=== PATIENT | male | born 1950 | race Caucasian/White ===

== ENCOUNTER 2020-09-15 11:25 | Outpatient (CLI) | payer MEDICARE, BC, OTHER, SELFPAY ==
--- NOTE | 2020-09-15 11:30 | ECG_ITS ---
Measurements Intervals [place] Rate: 69 P: 26 NH: 179 QRS: 21 QRSD: 140 T: 31 QT: 385 QTc: 415 Interpretive Statements SINUS RHYTHM LEFT BUNDLE BRANCH BLOCK BASELINE ARTIFACT- I, II, III, AVR, AVL, AVF, V1-V6 ABNORMAL ECG Electronically Signed On 09-15-2020 11:53:20 CDT by Oliverio Goetz D.O.
[2020-09-15 12:11] LABS: Anion Gap 5 mmol/L (8-16); Blood Urea Nitrogen 16 mg/dL (9-20); Calcium 10.8 mg/dL (8.4-10.2); Carbon Dioxide 33 mmol/L (22-30); Chloride 102 mmol/L (98-107); Estimated Glomerular Filt Rate > 60; Glucose 136 mg/dL (75-110); Potassium 5.1 mmol/L (3.4-5.0); Sodium 140 mmol/L (137-145)
== END 2020-09-15 11:26 | disposition home or self-care (01) ==
LOC: ANHSURGERY 11:33
PROVIDERS: Anesthesiology; PCP Family Medicine; Visit Provider Orthopaedic Surgery
DX: E11.9 Type 2 diabetes mellitus without complications (principal); Z79.899 Other long term (current) drug therapy; E78.5 Hyperlipidemia, unspecified; I10 Essential (primary) hypertension; R94.31 Abnormal electrocardiogram [ECG] [EKG]
CPT/HCPCS: 36415; 80048; 93005

== ENCOUNTER → 2020-09-18 00:17 | Outpatient (CLI) | payer MEDICARE, BC, OTHER, SELFPAY ==
[2020-09-19 14:53] LABS: SARS-CoV-2 RNA PCR Negative
== END ==
PROVIDERS: PCP Family Medicine; Visit Provider Orthopaedic Surgery
DX: Z01.812 Encounter for preprocedural laboratory examination (principal); Z20.822 Contact with and (suspected) exposure to COVID-19
CPT/HCPCS: C9803; U0003; U0005

== ENCOUNTER 2020-09-21 02:06 | Day surgery (SDC) | payer MEDICARE, BC, OTHER, SELFPAY ==
[2020-09-14 11:31] VITALS: BMI 25.7
--- NOTE | 2020-09-20 13:52 | WPDANESEPPF ---
Anes - Initial Pre Proc Eval Procedure: Operation Date: 09/21/20 08:30 Proposed Procedures p Arthroscopic Right Knee Partial Medial and Lateral Meniscectomy - Ian Sheikh MD Date/Time: 09/20/20 13:52 Surgeon: Ian Sheikh MD Pre Op Diagnosis: tear of right medial and lateral meniscus Patient Data Age: 70 Gender: M Height: 6 ft Weight: 86 kg Allergies Allergy/AdvReac Type Severity Reaction Status Date / Time tramadol AdvReac Mild Other Verified 09/21/20 06:51 Home Medications Medication Instructions Recorded Confirmed Type amlodipine 10 mg tablet 10 mg PO DAILY 08/17/20 09/21/20 History atorvastatin 40 mg tablet 40 mg PO HS 08/17/20 09/21/20 History diclofenac sodium 3 % topical gel 1 applic TOPICAL BID 08/17/20 09/21/20 History enalapril maleate 20 mg tablet 20 mg PO BID 08/17/20 09/21/20 History metformin 500 mg tablet 500 mg PO DAILY 08/17/20 09/21/20 History omeprazole 40 mg capsule,delayed 40 mg PO DAILY 08/17/20 09/21/20 History release triamterene 75 1 tablet PO DAILY 08/17/20 09/21/20 History mg-hydrochlorothiazide 50 mg tablet aspirin 81 mg PO DAILY 09/14/20 09/21/20 History omega 4-zha-dnz-fish oil [Fish Oil] 1 cap PO DAILY 09/14/20 09/21/20 History turmeric 400 mg PO DAILY 09/14/20 09/21/20 History vitamin B complex 1 tablet PO DAILY 09/14/20 09/21/20 History hydrocodone-acetaminophen 1 - 2 tablet PO Q4H PRN #14 tablet 09/21/20 Rx MDD 8 tablets Patient hx anesthesia problems: none Family hx anesthesia problems: none PMFSH Past Medical History Medical History (Updated 09/20/20 @ 13:51 by Emmanuel Leonard MD) Diabetes 1.5, managed as type 2 GERD (gastroesophageal reflux disease) Hypertension Surgical History Surgical History (Updated 09/02/20 @ 14:56 by Ni Carrington MA) History of right knee surgery History of shoulder surgery Social History Social History (Updated 08/17/20 @ 15:24 by Ludmila J. Becherer, RT(R)) Smoking status: Never smoker Alcohol intake: current Drinks per week: 5 Substance use: never Substance use type: does not use Living arrangements: with family Spiritual care concerns: No Anes - Eval Final PreProcedure Day of Procedure 09/20/20 13:52 Patient weight: overweight Heart: regular rate and rhythm Lungs: clear to auscultation Airway: Mallampati scale class II Neurological: alert and oriented Last oral intake: >/= 8 hours ASA classification: III Emergent: no Anesthetic plan: proceed Anesthesia type and monitoring: general LMA and standard monitoring Informed Consent: The patient's anesthetic plan and its attendant risks and benefits were discussed with the patient/family/POA. Questions were solicited and answers provided to the satisfaction of the patient/family/POA.
[2020-09-21 06:45] VITALS: BP 139/72; PULSE 68; RESP 18; TEMP 36.2; O2SAT 100
--- NOTE | 2020-09-21 06:52 | SUR.PREOP ---
PT STATES HE HAS CRUTCHES AT HOME AND KNOWS HOW TO USE THEM.
[2020-09-21] MEDS: LACTATED RINGERS 1,000 ML 30 ML IV CONT (07:10)
[2020-09-21] MEDS: KETOROLAC 15 MG/ML VIAL (*BKC) IV PUSH (07:14)
[2020-09-21] MEDS: ACETAMINOPHEN 500 MG TABLET 1000 MG PO (07:14)
[2020-09-21 07:19] LABS: Glucose Point of Care 122 (65-105)
--- NOTE | 2020-09-21 07:58 | WPDHPUPDATE1 ---
History and Physical Update Update Date/Time: 09/21/20 07:58 History and Physical has been reviewed, including an updated exam of the patient. There are NO changes in the patient's condition. Risks, benefits, and alternatives have been discussed and questions answered. Patient agrees to proceed with procedure.
[2020-09-21] MEDS: ceFAZolin 2 GM/D5W 50 ML 2 GM/50 ML BAG IVPB (08:33)
[2020-09-21] MEDS: BUPIVACAINE/EPINEPHRINE 0.5% 30 ML VIAL INFILTRATE (08:59)
--- NOTE | 2020-09-21 09:23 | PM.PROC ---
Procedure Note - Detailed Date of procedure: 09/21/20 Pre-op diagnosis: tear of right medial and lateral meniscus Medial and lateral meniscus tear, right knee. Post-op diagnosis: same Procedure performed: Arthroscopic partial medial and lateral meniscectomy, right knee. Description of procedure: Extensive tear posterior horn medial, and lateral horn horizontal cleavage tear. Mild femoral chondromalacia medial femur. Lateral minimal softening of the tibia weight bearing surface. Patellofemoral grade I chondromalacia. Anesthesia: GETA Surgeon: Ian Sheikh MD [employer] Director: Maryann Coleman PA-C Estimated blood loss (mL): 5 Tourniquet time (min): 23 Complications: None Condition: stable Disposition: PACU Findings: Procedure Details: The patient was identified and the surgical site confirmed and signed in the preoperative holding area. Antibiotics were started per protocol. She was brought to the operative room and transferred to the OR table. A general anesthetic was administered. Supine position with the operative lower extremity position in the leg rubio after placement of a well padded tourniquet. The leg support was lowered and the contralateral limb was supported with a soft bolster. The knee was prepped and draped in the usual sterile fashion. A time-out was performed. The portal sites were marked and infiltrated with 0.5% Marcaine 20 mL. The limb was exsanguinated and the tourniquet inflated to 300 mL Hg. Standard inferolateral and inferomedial portals were established. Inflow was obtained with the saline pump. The camera was introduced. Diagnostic inspection of the joint was accomplished. The menisci were debrided with the arthroscopic shaver and punches until stable. The radiofrequency ablation tool was used with good result to further d?bride and stabilize the remaining meniscus. The arthroscopic instruments were removed. The tourniquet released and wounds closed with subcutaneous 3-0 Monocryl absorbable suture. Steri strips and a sterile dressing were applied. A light elastic wrap was placed. The patient was extubated and brought to the recovery room in stable condition.
[2020-09-21 09:32] VITALS: BP 95/54; PULSE 70; RESP 14; TEMP 36.6; O2SAT 97
[2020-09-21 09:41] LABS: Glucose Point of Care 116 (65-105)
[2020-09-21 09:45] VITALS: BP 88/60; PULSE 64; RESP 12; O2SAT 100
[2020-09-21 10:00] VITALS: BP 110/65; PULSE 66; RESP 20; O2SAT 99
--- NOTE | 2020-09-21 10:03 | SUR.PHASEI ---
1000 - dr. hunt at bedside
[2020-09-21 10:07] VITALS: BP 125/74; PULSE 63; RESP 18
[2020-09-21 10:37] VITALS: BP 125/71; PULSE 60; RESP 20
== END 2020-09-21 10:47 | disposition home or self-care (01) ==
PROVIDERS: PCP Family Medicine; Visit Provider Orthopaedic Surgery
PROC: (CPT 29870; principal; 2020-09-21 08:30)
DX: M23.321 Other meniscus derangements, posterior horn of medial meniscus, right knee (principal); M23.351 Other meniscus derangements, posterior horn of lateral meniscus, right knee; M94.261 Chondromalacia, right knee; E13.9 Other specified diabetes mellitus without complications; I10 Essential (primary) hypertension; K21.9 Gastro-esophageal reflux disease without esophagitis; Z79.84 Long term (current) use of oral hypoglycemic drugs
CPT/HCPCS: 29880; 82948; A9270; J0690; J1170; J1885; J2250; J2405; J2704; J3010; J7120

== ENCOUNTER 2021-10-13 14:50 | Outpatient (CLI) | payer MEDICARE, BC, OTHER, SELFPAY ==
--- NOTE | ~2021-10-13 | XR_ITS ---
EXAMINATION: XR lumbar spine 2-3V DATE: 10/13/2021 15:20 INDICATION: Low back pain TECHNIQUE: Anteroposterior and lateral views of the lumbar spine, and cone-down lateral view of the l umbosacral junction were obtained. COMPARISON: None. FINDINGS: The lumbar vertebral body heights are normal. Bone alignment is normal. There is mild loss of intervertebral disc space height at L4-5 and L5-S1. Small degenerative osteophytes project from th e anterior endplates of multiple vertebral bodies. There is no fracture. There is mild facet osteoart hritis of the lower lumbar spine. IMPRESSION: 1. Mild lumbar spondylosis without acute findings. Reviewed, dictated and finalized at location F.
== END 2021-10-13 14:51 | disposition home or self-care (01) ==
PROVIDERS: PCP Family Medicine; Visit Provider Family Medicine
DX: M47.816 Spondylosis without myelopathy or radiculopathy, lumbar region (principal); G89.29 Other chronic pain
CPT/HCPCS: 72100

== ENCOUNTER 2021-12-28 00:38 | Day surgery (SDC) | payer MEDICARE, BC, OTHER, SELFPAY ==
[2021-12-20 09:43] VITALS: BMI 26.7
[2021-12-28 09:33] VITALS: BP 133/64; PULSE 66; RESP 17; TEMP 36.1; O2SAT 97; BMI 26.4
[2021-12-28] MEDS: LACTATED RINGERS 1,000 ML 150 ML IV CONT (09:48)
[2021-12-28 09:51] LABS: Glucose Point of Care 136 mg/dl (65-105)
--- NOTE | 2021-12-28 10:16 | WPDANESEPPF ---
Anes - Initial Pre Proc Eval Procedure: Operation Date: 12/28/21 10:45 Proposed Procedures p Esophagogastroduodenoscopy & Screening Colonoscopy - Heath De Oliveira MD Date/Time: 12/28/21 10:16 Surgeon: Heath De Oliveira MD Pre Op Diagnosis: hx of colon polyps, GERD Patient Data Age: 71 Gender: M Height: 1.83 m Weight: 88.6 kg Last Vital Signs Temp 97 F L 12/28/21 09:33 Pulse 66 12/28/21 09:33 Resp 17 12/28/21 09:33 BP 133/64 12/28/21 09:33 Pulse Ox 97 12/28/21 09:33 O2 Del Method Room Air 12/28/21 09:33 Allergies Allergy/AdvReac Type Severity Reaction Status Date / Time tramadol AdvReac Mild Other Verified 12/28/21 09:32 Home Medications Medication Instructions Recorded Confirmed Type amlodipine 10 mg tablet 10 mg PO DAILY 08/17/20 12/28/21 History diclofenac sodium 3 % topical gel 1 applic topical BID 08/17/20 12/28/21 History metformin 500 mg tablet 500 mg PO DAILY 08/17/20 12/28/21 History omeprazole 40 mg capsule,delayed 40 mg PO DAILY 08/17/20 12/28/21 History release triamterene 75 1 tablet PO DAILY 08/17/20 12/28/21 History mg-hydrochlorothiazide 50 mg tablet aspirin 81 mg tablet 81 mg PO DAILY 09/14/20 12/28/21 History omega 4-hqf-vip-fish oil 60 mg-90 1 cap PO DAILY 09/14/20 12/28/21 History mg-500 mg capsule (Fish Oil) turmeric 400 mg capsule 400 mg PO DAILY 09/14/20 12/28/21 History vitamin B complex 1 tablet PO DAILY 09/14/20 12/28/21 History atorvastatin 40 mg tablet 40 mg PO QHS 02/15/21 12/28/21 History magnesium 250 mg tablet 250 mg PO DAILY 02/15/21 12/28/21 History coenzyme Q10 30 mg capsule (CoQ-10) 30 mg PO DAILY 11/10/21 12/28/21 History Laboratory Tests 12/28/21 09:46 POC Capillary Glucose 136 mg/dl H mg/dl (65-105) Patient hx anesthesia problems: none Family hx anesthesia problems: none Results Review: All pre-operative results and documents have been reviewed as part of the pre-operative evaluation. [facility] Past Medical History Medical History (Updated 11/10/21 @ 15:45 by Heath De Oliveira MD) Chronic low back pain Dyslipidemia Essential (primary) hypertension GERD (gastroesophageal reflux disease) History of colon polyps Type 2 diabetes mellitus without complications Surgical History Surgical History History of right knee surgery (~09/2020) meniscus repair History of shoulder surgery (~2016) L: 2016, L:2017, R: 2014 repair of torn labrum History of thumb surgery 2009 - Right thumb trigger finger release Social History Social History Smoking status: Never smoker Alcohol intake: current Drinks per week: 5 Alcohol use details: few Substance use: never Substance use type: does not use Living arrangements: with family Spiritual care concerns: No Anes - Eval Final PreProcedure Day of Procedure 12/28/21 10:16 Patient weight: normal Heart: regular rate and rhythm Lungs: clear to auscultation Airway: Mallampati scale class II Neurological: alert and oriented Last oral intake: >/= 8 hours ASA classification: III Emergent: no Anesthetic plan: proceed Anesthesia type and monitoring: general GIVS and standard monitoring Results Review: All pre-operative results and documents have been reviewed as part of the pre-operative evaluation. Informed Consent: The patient's anesthetic plan and its attendant risks and benefits were discussed with the patient/family/POA. Questions were solicited and answers provided to the satisfaction of the patient/family/POA.
--- NOTE | 2021-12-28 10:21 | PM.HPGS ---
History of Present Illness History of Present Illness Consent: Risks, benefits, and alternatives have been discussed and questions answered. Patient agrees to proceed with procedure. Chief complaint: hx of colon polyps, GERD Narrative: Alberto Smith is a 71 year old male here for egd and colonoscopy, had?screening colonoscopy 2013 with polyp removed, recommendation to repeat another one in 7 years (he is due) and also more than 15 years on omeprazole because of gerd Review of Systems Constitutional: Constitutional: Denies headache(s) and Denies weakness Eyes: Eyes: Denies blurry vision ENT: Reports Normal hearing present, Denies headache(s) and Denies neck pain Cardiovascular: Cardiovascular: Denies chest pain and Denies dyspnea Respiratory: Respiratory: Denies dyspnea Gastrointestinal: Gastrointestinal: Reports no additional gastrointestinal complaints Genitourinary: Genitourinary: Denies dysuria Musculoskeletal: Musculoskeletal: Denies neck pain Integumentary/Breasts: Skin/Breast: Denies dry skin Neurologic: Reports Normal hearing present, Denies headache(s) and Denies weakness Psychiatric: Psychiatric: Denies anxiety Endocrine: Endocrine: Denies change in body appearance Hematologic/Lymphatic: Hematologic/Lymphatic: Denies easy bleeding Allergic/Immunologic: Allergic/Immunologic: Denies urticaria PMFSH Past Medical History Medical History (Updated 11/10/21 @ 15:45 by Heath De Oliveira MD) Chronic low back pain Dyslipidemia Essential (primary) hypertension GERD (gastroesophageal reflux disease) History of colon polyps Type 2 diabetes mellitus without complications Surgical History Surgical History History of right knee surgery (~09/2020) meniscus repair History of shoulder surgery (~2016) L: 2016, L:2017, R: 2014 repair of torn labrum History of thumb surgery 2009 - Right thumb trigger finger release Social History Social History Smoking status: Never smoker Alcohol intake: current Drinks per week: 5 Alcohol use details: few Substance use: never Substance use type: does not use Living arrangements: with family Spiritual care concerns: No Meds Home Medications and Allergies Home Medications Medication Instructions Recorded Confirmed Type amlodipine 10 mg tablet 10 mg PO DAILY 08/17/20 12/28/21 History diclofenac sodium 3 % topical gel 1 applic topical BID 08/17/20 12/28/21 History metformin 500 mg tablet 500 mg PO DAILY 08/17/20 12/28/21 History omeprazole 40 mg capsule,delayed 40 mg PO DAILY 08/17/20 12/28/21 History release triamterene 75 1 tablet PO DAILY 08/17/20 12/28/21 History mg-hydrochlorothiazide 50 mg tablet aspirin 81 mg tablet 81 mg PO DAILY 09/14/20 12/28/21 History omega 1-qkj-cet-fish oil 60 mg-90 1 cap PO DAILY 09/14/20 12/28/21 History mg-500 mg capsule (Fish Oil) turmeric 400 mg capsule 400 mg PO DAILY 09/14/20 12/28/21 History vitamin B complex 1 tablet PO DAILY 09/14/20 12/28/21 History atorvastatin 40 mg tablet 40 mg PO QHS 02/15/21 12/28/21 History magnesium 250 mg tablet 250 mg PO DAILY 02/15/21 12/28/21 History coenzyme Q10 30 mg capsule (CoQ-10) 30 mg PO DAILY 11/10/21 12/28/21 History Allergies Allergy/AdvReac Type Severity Reaction Status Date / Time tramadol AdvReac Mild Other Verified 12/28/21 09:32 Vital Signs Vital Signs - 24 hr 12/28/21 09:33 Temperature 97 F L Pulse Rate 66 Respiratory Rate 17 Blood Pressure 133/64 Pulse Oximetry 97 Oxygen Delivery Room Air Exam Const: General: comfortable and no acute distress HENMT: General nose exam: Normal nares present Eyes: General: appearance normal, both eyes and all related structures Neck: Neck: no JVD Resp: Auscultation: clear to auscultation bilaterally Cardio: Rate: regular rate Rhythm: regular rhythm GI:
--- NOTE | 2021-12-28 10:39 | SUR.OPER ---
EGD FINISHED AT 1033, COLONOSCOPY BEGAN AT 1037.
[2021-12-28 10:52] VITALS: BP 95/52; PULSE 58; RESP 30; O2SAT 95
[2021-12-28 11:02] VITALS: BP 97/56; PULSE 56; RESP 15; O2SAT 97
[2021-12-28 11:12] VITALS: BP 107/70; PULSE 59; RESP 19; O2SAT 100
== END 2021-12-28 11:17 | disposition home or self-care (01) ==
PROVIDERS: PCP Family Medicine; Visit Provider Internal Medicine Gastroenterology
PROC: 0DJ08ZZ Inspection of Upper Intestinal Tract, Via Natural or Artificial Opening Endoscopic (ICD-10-PCS; CPT 43235; principal; 2021-12-28 10:45)
DX: Z12.11 Encounter for screening for malignant neoplasm of colon (principal); K64.8 Other hemorrhoids; Z86.010 Personal history of colon polyps; K44.9 Diaphragmatic hernia without obstruction or gangrene; K21.9 Gastro-esophageal reflux disease without esophagitis; I10 Essential (primary) hypertension; E11.9 Type 2 diabetes mellitus without complications; E78.5 Hyperlipidemia, unspecified; M54.9 Dorsalgia, unspecified; G89.29 Other chronic pain; Z79.84 Long term (current) use of oral hypoglycemic drugs; Z79.82 Long term (current) use of aspirin
CPT/HCPCS: 43239; G0105; 82948; 88305; J2001; J2704; J7120

== ENCOUNTER 2022-03-18 11:51 | Emergency (ER) | payer MEDICARE, BC, OTHER, SELFPAY ==
[2022-03-18 12:05] VITALS: BP 137/68; PULSE 68; RESP 16; TEMP 36.3; O2SAT 98
--- NOTE | 2022-03-18 12:41 | ED.MALEGU ---
HPI - Male Genitourinary General Chief complaint: Urogenital-Male Stated complaint: Possible UTI Time Seen by Provider: 03/18/22 12:32 Source: patient Mode of arrival: ambulatory Limitations: no limitations History of Present Illness HPI Narrative: Patient presents today complaining of dysuria, urgency, frequency since yesterday. Denies fever, nausea, vomiting, diarrhea, URI symptoms. He has tried no medication for symptoms prior to arrival. Reports last UTI was 5 years ago and states he let the symptoms go for so long he needed 21 days of antibiotics. Related Data Home Medications Medication Instructions Recorded Confirmed amlodipine 10 mg tablet 10 mg PO DAILY 08/17/20 12/28/21 diclofenac sodium 3 % topical gel 1 applic topical BID 08/17/20 12/28/21 metformin 500 mg tablet 500 mg PO DAILY 08/17/20 12/28/21 omeprazole 40 mg capsule,delayed 40 mg PO DAILY 08/17/20 12/28/21 release triamterene 75 1 tablet PO DAILY 08/17/20 12/28/21 mg-hydrochlorothiazide 50 mg tablet aspirin 81 mg tablet 81 mg PO DAILY 09/14/20 12/28/21 omega 2-xqe-cyq-fish oil 60 mg-90 1 cap PO DAILY 09/14/20 12/28/21 mg-500 mg capsule (Fish Oil) turmeric 400 mg capsule 400 mg PO DAILY 09/14/20 12/28/21 vitamin B complex 1 tablet PO DAILY 09/14/20 12/28/21 atorvastatin 40 mg tablet 40 mg PO QHS 02/15/21 12/28/21 magnesium 250 mg tablet 250 mg PO DAILY 02/15/21 12/28/21 coenzyme Q10 30 mg capsule (CoQ-10) 30 mg PO DAILY 11/10/21 12/28/21 Allergies Allergy/AdvReac Type Severity Reaction Status Date / Time tramadol AdvReac Mild Other Verified 12/28/21 09:32 Review of Systems Review of Systems: CONSTITUTIONAL: Denies body aches, fever, chills, or sweats. EYES: Denies visual changes, redness, or discharge. ENT: Denies rhinorrhea, congestion, sore throat, or otalgia. CARDIOVASCULAR: Denies chest pain, palpitations, or edema. RESPIRATORY: Denies cough or dyspnea. GASTROINTESTINAL: Denies abdominal pain, nausea, vomiting, or diarrhea. GENITOURINARY: + dysuria, frequency, urgency SKIN: Denies rash, itching, or wounds. MUSCULOSKELETAL: Denies back pain, joint pain, or myalgia. NEUROLOGIC: Denies headache, numbness, tingling, or weakness. PSYCH: Denies depression or anxiety. [facility] Past Medical History Medical History Chronic low back pain Dyslipidemia Essential (primary) hypertension GERD (gastroesophageal reflux disease) History of colon polyps Type 2 diabetes mellitus without complications Surgical History Surgical History History of right knee surgery (~09/2020) meniscus repair History of shoulder surgery (~2016) L: 2016, L:2017, R: 2014 repair of torn labrum History of thumb surgery 2009 - Right thumb trigger finger release Social History Social History Smoking status: Never smoker Alcohol intake: current Drinks per week: 5 Alcohol use details: few Substance use: never Substance use type: does not use Spiritual care concerns: No Comments At time of signature, I have reviewed and agree with nursing past medical, surgical, social and family history unless otherwise noted. Please see nursing chart for further information. There is no relevant family history pertinent to the presenting complaint Exam Narrative: GENERAL: Well-appearing, well-nourished, and in no acute distress. HEAD: Normocephalic, atraumatic. EYES: EOMI. No redness or drainage. Conjunctivae normal. ENT: Mucous membranes pink and moist. NECK: Normal AROM. CHEST: No respiratory distress. Clear to auscultation. HEART: Regular rate and rhythm. No murmur appreciated. Normal peripheral pulses. ABDOMEN: Soft, nontender, nondistended, normal active bowel sounds.-CVAT EXTREMITIES: Normal range of motion. No edema. SKIN: Warm, dry, no rash. Capillary refill normal. No
== END 2022-03-18 12:50 | disposition home or self-care (01) ==
PROVIDERS: Emergency Provider Nurse Practitioner; PCP Family Medicine
DX: N30.01 Acute cystitis with hematuria (principal); E78.5 Hyperlipidemia, unspecified; I10 Essential (primary) hypertension; K21.9 Gastro-esophageal reflux disease without esophagitis; E11.9 Type 2 diabetes mellitus without complications; Z79.82 Long term (current) use of aspirin
CPT/HCPCS: 81003; 87086; 87147; 87181; 87186; 99213; G0463

== ENCOUNTER 2022-04-27 08:30 | Outpatient (CLI) | payer MEDICARE, BC, OTHER, SELFPAY ==
--- NOTE | 2022-04-27 08:45 | ECHO_ITS ---
Patient Info Name: Alberto Smith Age: 72 years : 1950 Gender: Male Ht: 72 in Wt: 195 lbs BSA: 2.13 m2 HR: 70 bpm BP: 153 / 78 mmHg Technical Quality: Good Exam Date: 04/27/2022 8:46 AM Exam Location: [facility] Patient Status: Outpatient Admit Date: 04/27/2022 Staff Ordering Physician: Geoffrey Owens MD [employer]ender Job Retention Specialist: Yana Bull RDCS Attending Provider: Geoffrey Owens MD Exam Type: CA echo doppler color flow Study Info Indications R01.1 - Cardiac murmur, unspecified Complete two-dimensional, color flow and Doppler transthoracic echocardiogram is performed. Summary 1. Complete two-dimensional, color flow and Doppler transthoracic echocardiogram is performed. 2. Left ventricular chamber dimension is moderately enlarged. 3. Left ventricular systolic function is moderately reduced, estimated at 35-40%. 4. Left ventricular septal wall motion is abnormal with septal motion related to bundle branch block. 5. The left ventricular diastolic function is grade I diastolic dysfunction. 6. E/e' 12 is mildly elevated. 7. Global longitudinal strain is abnormal at -14.8%. 8. Left atrial chamber dimension is mildly enlarged. 9. There is mild aortic valve sclerosis. 10. There is mild mitral valve regurgitation. 11. Mild pulmonary hypertension, estimated pulmonary arterial systolic pressure is 48 mmHg. Left Ventricle E/e' 12 is mildly elevated. Global longitudinal strain is abnormal at -14.8%. Left ventricular chamber dimension is moderately enlarged. Left ventricular systolic function is moderately reduced, estimated at 35-40%. Left ventricular septal wall motion is abnormal with septal motion related to bundle branch block. The left ventricular diastolic function is grade I diastolic dysfunction. Right Ventricle Right ventricular systolic function is normal and with normal TAPSE 2.7 cm. Right ventricular chamber dimension is normal. Left Atria Left atrial chamber dimension is mildly enlarged. Right Atria Right atrial chamber dimension is normal. Aortic Valve The aortic valve is trileaflet. There is mild aortic valve sclerosis. There is no aortic valve stenosis. There is no aortic valve regurgitation. Pulmonic Valve There is no pulmonic regurgitation. Mitral Valve There is no mitral valve stenosis. There is mild mitral valve regurgitation. Tricuspid Valve There is no tricuspid valve regurgitation. Mild pulmonary hypertension, estimated pulmonary arterial systolic pressure is 48 mmHg. Pericardium/Pleural There is no pericardial effusion. Inferior Vena Cava Normal inferior vena cava with >50% collapse upon inspiration consistent with normal right atrial pressure, 5 mmHg. Aorta The aortic root size at the sinus of Valsalva is normal. Left Ventricular Outflow Tract Name Value Normal LVOT 2D LVOT Diameter 2.0 cm LVOT Doppler LVOT Peak Gradient 6 mmHg LVOT Mean Gradient 4 mmHg LVOT VTI 25 cm LVOT VTI/AV VTI Ratio 0.[address]
== END 2022-04-27 08:31 | disposition home or self-care (01) ==
LOC: ANHCARD 08:31
PROVIDERS: PCP Family Medicine; Visit Provider Family Medicine
DX: R01.1 Cardiac murmur, unspecified (principal); I10 Essential (primary) hypertension; I08.0 Rheumatic disorders of both mitral and aortic valves; I27.20 Pulmonary hypertension, unspecified
CPT/HCPCS: 93306

== ENCOUNTER 2022-07-06 00:46 | Day surgery (SDC) | payer MEDICARE, BC, OTHER, SELFPAY ==
[2022-07-05 12:28] VITALS: BMI 27.1
[2022-07-06] VITALS (13 sets, daily range): BP systolic 108–141; BP diastolic 59–69; PULSE 60–85; RESP 12–19; TEMP 36.6–36.7; O2SAT 95–100; BMI 26.3
[2022-07-06 09:29] LABS: Basophils Absolute Auto 0.1 K/mm3 (0.0-0.1); Eosinophils Absolute Auto 0.2 K/mm3 (0-0.3); Eosinophils Percent Auto 3.9 % (0-4.4); Hematocrit 45.2 % (42.0-52.0); Hemoglobin 15.4 g/dL (14.0-18.0); Immature Granulocyte Absolute 0.02 K/mm3 (0.00-0.031); Immature Granulocyte Percent A 0.3 % (0-0.5); Lymphocytes Absolute Auto 2.08 K/mm3 (0.9-3.2); Lymphocytes Percent Auto 33.5 % (18.3-44.2); Mean Corpuscular HGB Conc 34.1 g/dl (32-36); Mean Corpuscular Hemoglobin 30.8 pg (26-34); Mean Corpuscular Volume 90.4 fl (80-100); Mean Platelet Volume 9.8 fl (7.4-10.4); Monocytes Absolute Auto 0.6 K/mm3 (0.1-0.6); Monocytes Percent Auto 9.5 % (2.6-8.5); Neutrophils Absolute Auto 3.2 K/mm3 (1.3-6.7); Neutrophils Percent Auto 51.8 % (45.5-73.1); Platelet Count Result 208 k/mm3 (150-375); Red Cell Distribution Width 12.6 % (11.5-14.5); White Blood Count 6.2 K/mm3 (4.5-10.0)
[2022-07-06 09:45] LABS: Anion Gap 7 mmol/L (8-16); Blood Urea Nitrogen 17 mg/dL (9-20); Calcium 10.3 mg/dL (8.4-10.2); Carbon Dioxide 29 mmol/L (22-30); Chloride 103 mmol/L (98-107); Estimated CRCL calculation 77 ml/min; Estimated Glomerular Filt Rate > 60; Glucose 149 mg/dL (65-110); Potassium 3.8 mmol/L (3.4-5.0); Sodium 139 mmol/L (137-145)
[2022-07-06] MEDS: ASPIRIN 81 MG CHEWABLE TABLET (09:48)
[2022-07-06] MEDS: CLOPIDOGREL BISULFATE 300 MG TABLET 600 MG (09:48)
--- NOTE | 2022-07-06 10:15 | PM.IMHP ---
H&P: HPI History of Present Illness Date/Time: 07/06/22 10:15 Chief Complaint: Abnormal stress test Narrative: Patient is referred for [facility] for ischemic evaluation for HFrEF and abnormal stress test. Patient without chest pain, shortness of breath or other symptoms this morning. Review of Systems Review of Systems: All systems reviewed & are unremarkable except as noted in HPI and below (HPI) [facility] Past Medical History Medical History Chronic low back pain Dyslipidemia Essential (primary) hypertension GERD (gastroesophageal reflux disease) History of colon polyps Type 2 diabetes mellitus without complications Surgical History Surgical History History of right knee surgery (~09/2020) meniscus repair History of shoulder surgery (~2016) L: 2015, L:2017, R: 2014 repair of torn labrum History of thumb surgery 2009 - Right thumb trigger finger release Social History Social History Smoking status: Former smoker Second hand tobacco smoke exposure: No Smoking end date: 05/14/79 Alcohol intake: never Drinks per week: 5 Alcohol use details: few Substance use: former Substance use type: does not use Lack of Transportation: No Lack of Food: Never True Current Housing: I Have Housing Concerned About Future Housing: No Difficulty Paying Gas/Electric Bills: No Difficulty Paying for Meds: No Currently Unemployed: No Education: Bachelor's Degree Difficulty w/ Childcare or Family Care: No Living arrangements: with family Additional living arrangements comments: Occupation/Education: retired Gender identity (if verbalized by the patient): Male Sexual Orientation (if Verbalized by the Patient): Straight or Heterosexual Spiritual care concerns: No Agree to blood products: Yes Meds Home Medications and Allergies Home Medications Medication Instructions Recorded Confirmed Type amlodipine 10 mg tablet 10 mg PO DAILY 08/17/20 07/06/22 History diclofenac sodium 3 % topical gel 1 applic topical BID 08/17/20 07/06/22 History metformin 500 mg tablet 500 mg PO BID 08/17/20 07/06/22 History omeprazole 40 mg capsule,delayed 40 mg PO DAILY 08/17/20 07/06/22 History release triamterene 75 1 tablet PO DAILY 08/17/20 07/06/22 History mg-hydrochlorothiazide 50 mg tablet aspirin 81 mg tablet 81 mg PO DAILY 09/14/20 07/06/22 History omega 6-mfh-gqc-fish oil 60 mg-90 1 cap PO DAILY 09/14/20 07/06/22 History mg-500 mg capsule (Fish Oil) turmeric 400 mg capsule 400 mg PO DAILY 09/14/20 07/06/22 History vitamin B complex 1 tablet PO DAILY 09/14/20 07/06/22 History atorvastatin 40 mg tablet 40 mg PO QHS 02/15/21 07/06/22 History coenzyme Q10 30 mg capsule (CoQ-10) 30 mg PO DAILY 11/10/21 07/06/22 History enalapril maleate 20 mg tablet 20 mg PO BID 04/03/22 07/06/22 History Allergies Allergy/AdvReac Type Severity Reaction Status Date / Time tramadol AdvReac Mild Other Verified 07/06/22 09:04 Vital Signs Vital Signs - 24 hr 07/06/22 09:08 Temperature 36.7 C Pulse Rate 85 Respiratory Rate 19 Blood Pressure 141/69 H Pulse Oximetry 98 Oxygen Delivery Room Air Exam Const: General: comfortable and no acute distress HENMT: Mouth: Yes moist mucous membranes Eyes: General: appearance normal, both eyes and all related structures Sclera: sclerae normal EOM: EOMs intact bilaterally Neck: Neck: supple Resp: Effort & Inspection: normal respiratory effort Auscultation: clear to auscultation bilaterally Cardio: Rate: regular rate Rhythm: regular rhythm Heart sounds: no murmurs GI: GI Palp: Yes Soft to palpation and No Tenderness to palpation present (GI) Skin: General skin exam: normal color Neuro: Speech: normal speech Extrem: General: normal to inspection Psych: Mental Status: mental status
--- NOTE | 2022-07-06 10:17 | WPDMODSED ---
Moderate Sedation Note-Pt Data Patient Data Diagnosis: HFrEF, abnormal stress test Present Complaint: HFrEF, abnormal stress test Procedure to be performed/Plan: Coronary angiography, LHC, +/- PCI Allergies Allergy/AdvReac Type Severity Reaction Status Date / Time tramadol AdvReac Mild Other Verified 07/06/22 09:04 Home Medications Medication Instructions Recorded Confirmed Type amlodipine 10 mg tablet 10 mg PO DAILY 08/17/20 07/06/22 History diclofenac sodium 3 % topical gel 1 applic topical BID 08/17/20 07/06/22 History metformin 500 mg tablet 500 mg PO BID 08/17/20 07/06/22 History omeprazole 40 mg capsule,delayed 40 mg PO DAILY 08/17/20 07/06/22 History release triamterene 75 1 tablet PO DAILY 08/17/20 07/06/22 History mg-hydrochlorothiazide 50 mg tablet aspirin 81 mg tablet 81 mg PO DAILY 09/14/20 07/06/22 History omega 9-zsz-bzz-fish oil 60 mg-90 1 cap PO DAILY 09/14/20 07/06/22 History mg-500 mg capsule (Fish Oil) turmeric 400 mg capsule 400 mg PO DAILY 09/14/20 07/06/22 History vitamin B complex 1 tablet PO DAILY 09/14/20 07/06/22 History atorvastatin 40 mg tablet 40 mg PO QHS 02/15/21 07/06/22 History coenzyme Q10 30 mg capsule (CoQ-10) 30 mg PO DAILY 11/10/21 07/06/22 History enalapril maleate 20 mg tablet 20 mg PO BID 04/03/22 07/06/22 History Current Medications: Active Medications Sodium Chloride (Normal Saline Iv) 500 mls @ 100 mls/hr IV CONT .Q5H [place] Sedation/Anesthesia: No previous sedation/anesthesia problems (including family history). [facility] Past Medical History Medical History Chronic low back pain Dyslipidemia Essential (primary) hypertension GERD (gastroesophageal reflux disease) History of colon polyps Type 2 diabetes mellitus without complications Surgical History Surgical History History of right knee surgery (~09/2020) meniscus repair History of shoulder surgery (~2016) L: 2015, L:2017, R: 2014 repair of torn labrum History of thumb surgery 2010 - Right thumb trigger finger release Social History Social History Smoking status: Former smoker Second hand tobacco smoke exposure: No Smoking end date: 05/14/79 Alcohol intake: never Drinks per week: 5 Alcohol use details: few Substance use: former Substance use type: does not use Lack of Transportation: No Lack of Food: Never True Current Housing: I Have Housing Concerned About Future Housing: No Difficulty Paying Gas/Electric Bills: No Difficulty Paying for Meds: No Currently Unemployed: No Education: Bachelor's Degree Difficulty w/ Childcare or Family Care: No Living arrangements: with family Additional living arrangements comments: Occupation/Education: retired Gender identity (if verbalized by the patient): Male Sexual Orientation (if Verbalized by the Patient): Straight or Heterosexual Spiritual care concerns: No Agree to blood products: Yes Mod Sed Physical Exam Physical Exam Pre Procedural Exam: Normal: Appearance, Lungs, Heart Rate, Heart Rhythm, Neuro Exam, Abdomen, Extremities and Skin Hours since solid foods: 12 Hours since liquid intake: 8 Mallampati Classification: class III Internal Medicine - PN: Obj Da Vital Signs Vital Signs: Vital Signs - 24 hr 07/06/22 09:08 Temperature 36.7 C Pulse Rate 85 Respiratory Rate 19 Blood Pressure 141/69 H Pulse Oximetry 98 Oxygen Delivery Room Air Meds/Results Medications: Active Medications Generic Name Dose Route Start Last Admin Trade Name Freq PRN Reason Stop Dose Admin Sodium Chloride 500 mls @ 100 mls/hr 07/06/22 08:30 Normal Saline Iv IV CONT .Q5H MIL[place]RO Labs 07/06/22 09:19 07/06/22 09:19 Labs: Laboratory Results - last 24 hr 07/06/22 07/06/22 09:19 09:19 WBC 6.2 RBC
--- NOTE | 2022-07-06 10:57 | WPDCARDPROC ---
Cardiac Cath Procedure Note Date of procedure:: 07/06/22 Performing physician:: CATHETERIZATION LABORATORY REPORT Procedure Date: 07/06/2022 Asbestos Removal Worker: Tina Odonnell M.D., [facility]? Referring Physician: Dr. Costello ? Anesthesia: Versed and Fentanyl were ordered and given in my presence at 10:21, procedure ended at 10:38. Supervision of nurse monitored moderate sedation with Versed and Fentanyl was provided for 17 minutes. Total of Versed 3mg and Fentanyl 50mcg were administered by the Filler Room Attendant RN Radha Morgan. Pre-op Diagnosis: Cardiomyopathy, abnormal stress test Post-op Diagnosis: 1. Non-obstructive coronary arteries 2. Left ventricular end-diastolic pressure of 8mmHg Procedure(s): Left heart catheterization with coronary angiography Access Site: Right radial artery Brief History and Clinical Indications: Patient is a 72-year-old male who is referred for [facility] for ischemic evaluation for cardiomyopathy with HFrEF and abnormal stress test. All risks, benefits and alternatives to left heart catheterization with or without percutaneous coronary intervention was discussed at length with the patient. Risk of complications including but not limited to bleeding, infection, arrhythmia, stroke, worsening kidney function, blood loss, groin hematoma, limb loss, emergency coronary artery bypass grafting, and even were discussed with the patient and all questions were answered. The patient understood and wished to proceed. Time out called, patient name, date of , medical record number, allergies, procedure performed, identify Asbestos Removal Worker, patient and staff member concurred with accurate data, procedure carried on. Findings: LEFT HEART CATHETERIZATION FINDINGS: 1. Left main: The left main coronary artery is widely patent without any significant obstructive disease. 2. Left anterior descending: The LAD and the diagonal branches have mild luminal irregularities without any significant obstructive angiographic disease. 3. Ramus: Ramus has mild luminal irregularities without any significant obstructive angiographic disease. 4. Left circumflex: The left circumflex artery and the main marginal branches have mild luminal irregularities without any significant obstructive angiographic disease. 5. Right coronary artery: The RCA has mild luminal irregularities without any significant obstructive angiographic disease. The RCA is the dominant vessel. 6. Left ventricle: A. End-diastolic pressure 8 mmHg. B. LV gram deferred. C. No significant gradient across aortic valve on catheter pullback. Description of Procedure: Informed consent signed and placed in the chart. Patient transferred to cardiac cath lab radiology technologist room. Prepped and draped in usual sterile fashion. 2% lidocaine injected subcutaneously in right wrist area. 22-gauge venipuncture catheter used to access the right radial artery with the Seldinger technique. 6-FR slender sheath placed in right radial artery. Nitroglycerine and Verapamil were given intraarterial through the sheath. Versacore wire advanced under fluoroscopy 5F Tig 4 diagnostic catheter engaged Left Main Coronary Artery. 5F Tig 4 diagnostic catheter engaged Right Coronary Artery Multiple orthogonal angiogram obtained and reviewed 5F Tig 4 diagnostic catheter crossed aortic valve to obtain LVEDP, LV angiogram deferred. Hemostasis was achieved by application of TR band. ? Assessment: 1. Non-obstructive coronary arteries 2. Left ventricular end-diastolic pressure of 8mmHg Post Operative Condition: Stable No significant blood loss Disposition: Home Plan: The patient will be monitored in the recovery area. Discharge home after post cath bed rest is completed. The above findings were discussed with the referring physician. Continue aggressive medical therapy and risk factor modification. ? Tina Odonnell M.D. Interventional Cardiology
== END 2022-07-06 14:20 | disposition home or self-care (01) ==
PROVIDERS: PCP Family Medicine; Visit Provider Internal Medicine
PROC: 4A023N7 Measurement of Cardiac Sampling and Pressure, Left Heart, Percutaneous Approach (ICD-10-PCS; CPT 93452; principal; 2022-07-06 10:00)
DX: I11.9 Hypertensive heart disease without heart failure (principal); R94.39 Abnormal result of other cardiovascular function study; I42.9 Cardiomyopathy, unspecified; E78.5 Hyperlipidemia, unspecified; E11.9 Type 2 diabetes mellitus without complications; K21.9 Gastro-esophageal reflux disease without esophagitis; Z79.84 Long term (current) use of oral hypoglycemic drugs; Z79.82 Long term (current) use of aspirin; Z87.891 Personal history of nicotine dependence
CPT/HCPCS: 36415; 80048; 85025; 93458; A9270; C1769; C1887; C1894; J1644; J2250; J3010; J7040

== ENCOUNTER 2023-01-17 10:20 | Emergency (ER) | payer MEDICARE, BC, OTHER, SELFPAY ==
[2023-01-17 10:30] VITALS: BP 145/66; PULSE 64; RESP 14; TEMP 36.3; O2SAT 96
--- NOTE | 2023-01-17 11:28 | ED.SKABFB ---
HPI - Skin/Abscess/Foreign Bdy General Chief complaint: Skin/Abscess/Foreign Body Stated complaint: abscess on back Time Seen by Provider: 01/17/23 11:31 Source: patient and RN notes reviewed Mode of arrival: ambulatory Limitations: no limitations History of Present Illness HPI narrative: Patient presents today complaining of a carbuncle to his midline mid back x1 week that has been draining over the last couple of days. Reports some moderate pain. Denies history of abscess, staph infection. He has not tried any quxw-uks-gnddnxl interventions prior to arrival. Related Data Home Medications Medication Instructions Recorded Confirmed amlodipine 10 mg tablet 10 mg PO DAILY 08/17/20 01/17/23 diclofenac sodium 3 % topical gel 1 applic topical BID 08/17/20 01/17/23 aspirin 81 mg tablet 81 mg PO DAILY 09/14/20 01/17/23 omega 8-vux-qqk-fish oil 60 mg-90 1 cap PO DAILY 09/14/20 01/17/23 mg-500 mg capsule (Fish Oil) turmeric 400 mg capsule 400 mg PO DAILY 09/14/20 01/17/23 vitamin B complex 1 tablet PO DAILY 09/14/20 01/17/23 atorvastatin 40 mg tablet 40 mg PO QHS 02/15/21 01/17/23 coenzyme Q10 30 mg capsule (CoQ-10) 30 mg PO DAILY 11/10/21 01/17/23 enalapril maleate 20 mg tablet 20 mg PO BID 04/03/22 01/17/23 metformin 500 mg tablet 500 mg PO DAILY 10/16/22 01/17/23 omeprazole 20 mg capsule,delayed 20 mg PO DAILY 10/16/22 01/17/23 release triamterene 75 0.5 tablet PO .QOD 10/16/22 01/17/23 mg-hydrochlorothiazide 50 mg tablet Allergies Allergy/AdvReac Type Severity Reaction Status Date / Time tramadol AdvReac Mild Other Verified 01/17/23 10:45 Review of Systems Review of Systems: CONSTITUTIONAL: Denies body aches, fever, chills, or sweats. EYES: Denies visual changes, redness, or discharge. ENT: Denies rhinorrhea, congestion, sore throat, or otalgia. CARDIOVASCULAR: Denies chest pain, palpitations, or edema. RESPIRATORY: Denies cough or dyspnea. GASTROINTESTINAL: Denies abdominal pain, nausea, vomiting, or diarrhea. GENITOURINARY: Denies dysuria or hematuria. SKIN: + carbuncle to back. MUSCULOSKELETAL: Denies back pain, joint pain, or myalgia. NEUROLOGIC: Denies headache, numbness, tingling, or weakness. PSYCH: Denies depression or anxiety. [facility] Past Medical History Medical History CHF (congestive heart failure) Chronic low back pain Dyslipidemia Essential (primary) hypertension GERD (gastroesophageal reflux disease) History of colon polyps Type 2 diabetes mellitus without complications Surgical History Surgical History History of right knee surgery (~09/2020) meniscus repair History of shoulder surgery (~2016) L: 2016, L:2017, R: 2014 repair of torn labrum History of thumb surgery 2009 - Right thumb trigger finger release Social History Social History Smoking status: Former smoker Second hand tobacco smoke exposure: No Smoking end date: 05/14/72 Alcohol intake: never Drinks per week: 5 Alcohol use details: few Substance use: former Substance use type: does not use Lack of Transportation: No Lack of Food: Never True Current Housing: I Have Housing Concerned About Future Housing: No Difficulty Paying Gas/Electric Bills: No Difficulty Paying for Meds: No Currently Unemployed: No Education: Bachelor's Degree Difficulty w/ Childcare or Family Care: No Living arrangements: with family Additional living arrangements comments: Occupation/Education: retired Gender identity (if verbalized by the patient): Male Sexual Orientation (if Verbalized by the Patient): Straight or Heterosexual Spiritual care concerns: No Agree to blood products: Yes Comments At time of signature, I have reviewed and agree with nursing past medical, surgical, social and family history unle
== END 2023-01-17 11:38 | disposition home or self-care (01) ==
PROVIDERS: Emergency Provider Nurse Practitioner; PCP Family Medicine
DX: L02.212 Cutaneous abscess of back [any part, except buttock and flank] (principal); Z87.891 Personal history of nicotine dependence; I11.0 Hypertensive heart disease with heart failure; I50.9 Heart failure, unspecified; E78.5 Hyperlipidemia, unspecified; K21.9 Gastro-esophageal reflux disease without esophagitis; E11.9 Type 2 diabetes mellitus without complications; Z79.84 Long term (current) use of oral hypoglycemic drugs; Z79.82 Long term (current) use of aspirin
CPT/HCPCS: 10061; 99213; G0463

== ENCOUNTER 2023-04-11 08:51 | Outpatient (CLI) | payer MEDICARE, BC, OTHER, SELFPAY ==
[2023-04-11 09:28] LABS: Basophils Absolute Auto 0.1 K/mm3 (0.0-0.1); Basophils Percent Auto 1.2 % (0.2-1.2); Eosinophils Absolute Auto 0.2 K/mm3 (0-0.3); Eosinophils Percent Auto 4.8 % (0-4.4); Hematocrit 43.2 % (42.0-52.0); Hemoglobin 14.2 g/dL (14.0-18.0); Immature Granulocyte Absolute 0.03 K/mm3 (0.00-0.031); Immature Granulocyte Percent A 0.6 % (0-0.5); Lymphocytes Absolute Auto 1.84 K/mm3 (0.9-3.2); Mean Corpuscular HGB Conc 32.9 g/dl (32-36); Mean Corpuscular Hemoglobin 30.5 pg (26-34); Mean Corpuscular Volume 92.9 fl (80-100); Mean Platelet Volume 9.9 fl (7.4-10.4); Monocytes Absolute Auto 0.5 K/mm3 (0.1-0.6); Monocytes Percent Auto 9.7 % (2.6-8.5); Neutrophils Absolute Auto 2.3 K/mm3 (1.3-6.7); Neutrophils Percent Auto 46.7 % (45.5-73.1); Platelet Count Result 217 k/mm3 (150-375); Red Blood Count 4.65 M/mm3 (4.6-6.20); Red Cell Distribution Width 12.3 % (11.5-14.5)
[2023-04-11 09:53] LABS: LDL Cholesterol Direct 53 mg/dL
[2023-04-11 09:54] LABS: Creatinine Urine 82.3 mg/dL
[2023-04-11 10:00] LABS: Hemoglobin A1C 6.2 % (<5.7)
[2023-04-11 10:09] LABS: Alanine Aminotransferase 48 U/L (6-50); Albumin Level 4.5 g/dL (3.5-5.1); Alkaline Phosphatase 58 U/L (38-126); Anion Gap 7 mmol/L (8-16); Aspartate Amino Transferase 45 U/L (17-59); Blood Urea Nitrogen 13 mg/dL (9-20); Calcium 10.7 mg/dL (8.4-10.2); Carbon Dioxide 31 mmol/L (22-30); Chloride 100 mmol/L (98-107); Cholesterol 135 mg/dL (0-200); Estimated Glomerular Filt Rate > 60; Glucose 153 mg/dL (65-110); HDL Direct 55 mg/dL; Potassium 4.9 mmol/L (3.4-5.0); Sodium 138 mmol/L (137-145); Triglycerides 159 mg/dL (<150)
[2023-04-11 10:10] LABS: MALB Creatinine Ratio < 7.3 mg/g (0-30); Microalbumin Urine Random < 6.0 mg/L (0-16.7)
[2023-04-11 10:11] LABS: Prostate Specific Antigen 0.8 ng/mL (< OR = 4.0)
[2023-04-11 10:46] LABS: Vitamin D 25 Hydroxy 52.1 ng/mL
[2023-04-11 11:00] LABS: Thyroid Stimulating Hormone Reflex 0.705 uIU/mL (0.465-4.68)
== END 2023-04-11 08:52 | disposition home or self-care (01) ==
LOC: ANHLAB 08:56
PROVIDERS: PCP Family Medicine; Visit Provider Family Medicine
DX: I10 Essential (primary) hypertension (principal); E11.9 Type 2 diabetes mellitus without complications; E78.5 Hyperlipidemia, unspecified; Z12.5 Encounter for screening for malignant neoplasm of prostate; E55.9 Vitamin D deficiency, unspecified; E53.8 Deficiency of other specified B group vitamins; I50.9 Heart failure, unspecified
CPT/HCPCS: 36415; 80053; 80061; 82043; 82306; 82607; 83036; 84153; 84443; 85025; G0103

== ENCOUNTER 2023-05-18 13:46 | Emergency (ER) | payer MEDICARE, BC, OTHER, SELFPAY ==
--- NOTE | 2023-05-18 13:55 | ED.MALEGU ---
HPI - Male Genitourinary General Chief complaint: Urogenital-Male Stated complaint: CHILLS/STOMACH/PROBLEMS URINATING Time Seen by Provider: 05/18/23 14:02 Source: patient, RN notes reviewed and old records reviewed Mode of arrival: ambulatory Limitations: no limitations History of Present Illness HPI Narrative: 73-year-old male presents to the [facility] with complaints stomach discomfort, lower, suprapubic since last night. This morning developed some frequency and burning with urination. Has a history of UTIs. Patient denies any mental pain, chest pain or fevers. Denies nausea vomiting. Other history is include congestive heart failure, cholesterol, hypertension, type 2 diabetes, acid reflux Related Data Home Medications Medication Instructions Recorded Confirmed amlodipine 10 mg tablet 10 mg PO DAILY 08/17/20 05/18/23 diclofenac sodium 3 % topical gel 1 applic topical BID 08/17/20 05/18/23 aspirin 81 mg tablet 81 mg PO DAILY 09/14/20 04/24/23 omega 6-cys-bow-fish oil 60 mg-90 1 cap PO DAILY 09/14/20 05/18/23 mg-500 mg capsule (Fish Oil) turmeric 400 mg capsule 400 mg PO DAILY 09/14/20 05/18/23 vitamin B complex 1 tablet PO DAILY 09/14/20 05/18/23 atorvastatin 40 mg tablet 40 mg PO QHS 02/15/21 05/18/23 coenzyme Q10 30 mg capsule (CoQ-10) 30 mg PO DAILY 11/10/21 05/18/23 enalapril maleate 20 mg tablet 20 mg PO BID 04/03/22 05/18/23 metformin 500 mg tablet 500 mg PO DAILY 10/16/22 05/18/23 omeprazole 20 mg capsule,delayed 20 mg PO DAILY 10/16/22 05/18/23 release triamterene 75 0.5 tablet PO .QOD 10/16/22 05/18/23 mg-hydrochlorothiazide 50 mg tablet Allergies Allergy/AdvReac Type Severity Reaction Status Date / Time tramadol AdvReac Mild Other Verified 05/18/23 13:52 Review of Systems Review of Systems: All systems reviewed & are unremarkable except as noted in HPI and below Constitutional: Constitutional: Reports no additional constitutional complaints Eyes: Eyes: Reports no additional eye complaints ENT: Reports system reviewed and no additional complaints, except as documented Cardiovascular: Cardiovascular: Reports no additional cardiovascular complaints, Denies chest pain and Denies dyspnea Respiratory: Respiratory: Reports no additional respiratory complaints, Denies chest congestion, Denies cough and Denies dyspnea Gastrointestinal: Gastrointestinal: Reports no additional gastrointestinal complaints, Denies abdominal pain, Denies nausea and Denies vomiting Genitourinary: Genitourinary: Reports as per HPI Musculoskeletal: Musculoskeletal: Reports no additional musculoskeletal complaints Integumentary/Breasts: Skin/Breast: Reports system reviewed and no additional complaints, except as docu Neurologic: Reports system reviewed and no additional complaints, except as documented Psychiatric: Psychiatric: Reports no additional psychiatric complaints Allergic/Immunologic: Allergic/Immunologic: Reports no additional allergic/immunologic complaints [facility] Past Medical History Medical History CHF (congestive heart failure) Chronic low back pain Dyslipidemia Essential (primary) hypertension GERD (gastroesophageal reflux disease) History of colon polyps Type 2 diabetes mellitus without complications Surgical History Surgical History History of right knee surgery (~09/2020) meniscus repair History of shoulder surgery (~2016) L: 2016, L:2017, R: 2014 repair of torn labrum History of thumb surgery 2009 - Right thumb trigger finger release Social History Social History Smoking status: Former smoker Second hand tobacco smoke exposure: No Smoking end date: 05/14/72 Alcohol intake: never Drinks per week: 5 Alcohol use details: few Substance use: former Substance use type: does not use Lack of Transportation: No
[2023-05-18 13:57] VITALS: BP 140/69; PULSE 81; RESP 16; TEMP 37.1; O2SAT 97
== END 2023-05-18 14:14 | disposition home or self-care (01) ==
PROVIDERS: Emergency Provider Nurse Practitioner; PCP Family Medicine
DX: N39.0 Urinary tract infection, site not specified (principal); B96.1 Klebsiella pneumoniae [K. pneumoniae] as the cause of diseases classified elsewhere; I11.0 Hypertensive heart disease with heart failure; I50.9 Heart failure, unspecified; E78.5 Hyperlipidemia, unspecified; K21.9 Gastro-esophageal reflux disease without esophagitis; E11.9 Type 2 diabetes mellitus without complications
CPT/HCPCS: 81003; 87077; 87086; 87186; 99213; G0463

== ENCOUNTER 2023-06-08 07:00 | Outpatient (NON) | payer MEDICARE, BC, OTHER, SELFPAY | END 2023-06-08 07:01 | disposition home or self-care (01) | LOC: ANHLAB 06-09 10:05 | PROVIDERS: PCP Family Medicine; Visit Provider Nurse Practitioner Family | DX: R30.0 Dysuria (principal) | CPT/HCPCS: 87077; 87086; 87186 ==

== ENCOUNTER 2023-06-19 14:26 | Outpatient (CLI) | payer MEDICARE, BC, OTHER, SELFPAY ==
[2023-06-19 15:19] LABS: Anion Gap 6 mmol/L (8-16); Blood Urea Nitrogen 13 mg/dL (9-20); Calcium 10.9 mg/dL (8.4-10.2); Carbon Dioxide 32 mmol/L (22-30); Chloride 98 mmol/L (98-107); Estimated Glomerular Filt Rate > 60; Glucose 118 mg/dL (65-110); Potassium 4.8 mmol/L (3.4-5.0); Sodium 136 mmol/L (137-145)
== END 2023-06-19 14:27 | disposition home or self-care (01) ==
PROVIDERS: PCP Family Medicine; Visit Provider Nurse Practitioner Adult Health
DX: I51.9 Heart disease, unspecified (principal)
CPT/HCPCS: 36415; 80048

== ENCOUNTER 2023-09-11 08:41 | Outpatient (CLI) | payer MEDICARE, BC, OTHER, SELFPAY ==
--- NOTE | ~2023-09-11 | MR_ITS ---
MRI of the lumbar spine Clinical History: Back pain Technique: Axial T2-weighted images, and sagittal T1-weighted, T2-weighted, and and T2 fat-sat images were acquired. Findings: There is no acute fracture or subluxation of the lumbar spine. Vertebral bodies maintain no rmal height and alignment. No suspicious bone marrow signal abnormality seen. At L1-L2, there is minimal disc bulge and advanced facet arthropathy. There is mild central canal yuko nosis. There is preservation neural foramina bilaterally. At L2-L3, there is disc bulge and severe facet arthropathy, resulting in severe spinal canal stenosis /thecal sac compression. There is minimal right neural foraminal narrowing. Left neural foramen prese rved. At L3-L4, there is disc bulge and severe facet arthropathy, with severe central canal stenosis/thecal sac compression. There is moderate bilateral neural foraminal narrowing. At L4-L5, there is diffuse disc bulge and probable superimposed disc protrusion, with advanced facet arthropathy. These films severe spinal canal stenosis/thecal sac compression. There is moderate to se aviva bilateral neural foraminal narrowing. At L5-S1, there is minimal disc bulge and advanced facet arthropathy. No central canal stenosis. Ther e is minimal left neural foraminal narrowing. Right neural foramen preserved. Paravertebral soft tissues are unremarkable. Impression: Severe degenerative spondylosis, especially from L2-L3 through L4-L5. Please see details above. Reviewed, dictated and finalized at [facility]. Impression: Severe degenerative spondylosis, especially from L2-L3 through L4-L5. Please se e details above.
== END 2023-09-11 08:42 ==
LOC: MICIMG 08:43
PROVIDERS: PCP Nurse Practitioner Family; Visit Provider Nurse Practitioner Family
DX: M47.896 Other spondylosis, lumbar region (principal)
CPT/HCPCS: 72148

== ENCOUNTER 2023-10-18 09:44 | Outpatient (CLI) | payer MEDICARE, BC, OTHER, SELFPAY ==
[2023-10-18 10:24] LABS: Basophils Absolute Auto 0.1 K/mm3 (0.0-0.1); Basophils Percent Auto 1.4 % (0.2-1.2); Eosinophils Absolute Auto 0.2 K/mm3 (0-0.3); Eosinophils Percent Auto 3.2 % (0-4.4); Hematocrit 45.9 % (42.0-52.0); Hemoglobin 15.1 g/dL (14.0-18.0); Immature Granulocyte Absolute 0.09 K/mm3 (0.00-0.031); Immature Granulocyte Percent A 1.5 % (0-0.5); Lymphocytes Absolute Auto 2.11 K/mm3 (0.9-3.2); Lymphocytes Percent Auto 35.7 % (18.3-44.2); Mean Corpuscular HGB Conc 32.9 g/dl (32-36); Mean Corpuscular Hemoglobin 30.4 pg (26-34); Mean Corpuscular Volume 92.5 fl (80-100); Mean Platelet Volume 10.1 fl (7.4-10.4); Monocytes Absolute Auto 0.5 K/mm3 (0.1-0.6); Monocytes Percent Auto 8.3 % (2.6-8.5); Neutrophils Percent Auto 49.9 % (45.5-73.1); Platelet Count Result 222 k/mm3 (150-375); Red Blood Count 4.96 M/mm3 (4.6-6.20); Red Cell Distribution Width 12.3 % (11.5-14.5); White Blood Count 5.9 K/mm3 (4.5-10.0)
[2023-10-18 12:07] LABS: Alanine Aminotransferase 39 U/L (6-50); Albumin Level 4.6 g/dL (3.5-5.1); Alkaline Phosphatase 61 U/L (38-126); Anion Gap 5 mmol/L (4-12); Aspartate Amino Transferase 30 U/L (17-59); Bilirubin,Total 0.8 mg/dL (0.2-1.3); Blood Urea Nitrogen 17 mg/dL (9-20); Calcium 10.3 mg/dL (8.4-10.2); Carbon Dioxide 30 mmol/L (22-30); Chloride 104 mmol/L (98-107); Cholesterol 145 mg/dL (0-200); Estimated Glomerular Filt Rate > 60; Glucose 155 mg/dL (65-110); HDL Direct 60 mg/dL; Potassium 4.4 mmol/L (3.4-5.0); Sodium 139 mmol/L (137-145); Triglycerides 178 mg/dL (<150)
[2023-10-18 12:19] LABS: LDL Cholesterol Direct 63 mg/dL
[2023-10-18 12:33] LABS: Prostate Specific Antigen 0.8 ng/mL (< OR = 4.0)
[2023-10-18 13:05] LABS: Creatinine Urine 24.8 mg/dL
[2023-10-18 13:36] LABS: MALB Creatinine Ratio < 24.2 mg/g (0-30); Microalbumin Urine Random < 6.0 mg/L (0-16.7)
[2023-10-18 13:41] LABS: Parathyroid Intact 181.8 pg/mL (7.5-53.5)
[2023-10-18 13:43] LABS: Vitamin D 25 Hydroxy 41.6 ng/mL
[2023-10-19 01:26] LABS: Hemoglobin A1C 6.7 % (<5.7)
== END 2023-10-18 09:45 | disposition home or self-care (01) ==
PROVIDERS: PCP Nurse Practitioner Family; Visit Provider Family Medicine
DX: E53.8 Deficiency of other specified B group vitamins (principal); Z12.5 Encounter for screening for malignant neoplasm of prostate; E55.9 Vitamin D deficiency, unspecified; E78.5 Hyperlipidemia, unspecified; E11.9 Type 2 diabetes mellitus without complications; E83.52 Hypercalcemia; I10 Essential (primary) hypertension
CPT/HCPCS: 36415; 80053; 80061; 82043; 82306; 82607; 83036; 83970; 84153; 84443; 85025; G0103

== ENCOUNTER 2024-05-01 09:19 | Outpatient (CLI) | payer MEDICARE, BC, OTHER, SELFPAY ==
[2024-05-01 10:25] LABS: Basophils Absolute Auto 0.1 K/mm3 (0.0-0.1); Eosinophils Absolute Auto 0.2 K/mm3 (0-0.3); Eosinophils Percent Auto 3.6 % (0-4.4); Hematocrit 47.4 % (42.0-52.0); Hemoglobin 15.4 g/dL (14.0-18.0); Immature Granulocyte Absolute 0.02 K/mm3 (0.00-0.031); Immature Granulocyte Percent A 0.4 % (0-0.5); Lymphocytes Absolute Auto 1.53 K/mm3 (0.9-3.2); Mean Corpuscular HGB Conc 32.5 g/dl (32-36); Mean Corpuscular Hemoglobin 30.6 pg (26-34); Mean Platelet Volume 9.8 fl (7.4-10.4); Monocytes Absolute Auto 0.5 K/mm3 (0.1-0.6); Monocytes Percent Auto 10.5 % (2.6-8.5); Neutrophils Absolute Auto 2.5 K/mm3 (1.3-6.7); Neutrophils Percent Auto 52.5 % (45.5-73.1); Platelet Count Result 193 k/mm3 (150-375); Red Blood Count 5.04 M/mm3 (4.6-6.20); White Blood Count 4.8 K/mm3 (4.5-10.0)
[2024-05-01 10:40] LABS: Alanine Aminotransferase 40 U/L (6-50); Albumin Level 4.4 g/dL (3.5-5.1); Alkaline Phosphatase 60 U/L (38-126); Anion Gap 2 mmol/L (4-12); Aspartate Amino Transferase 37 U/L (17-59); Bilirubin,Total 0.7 mg/dL (0.2-1.3); Blood Urea Nitrogen 22 mg/dL (9-20); Calcium 10.3 mg/dL (8.4-10.2); Carbon Dioxide 31 mmol/L (22-30); Chloride 104 mmol/L (98-107); Cholesterol 159 mg/dL (0-200); Estimated Glomerular Filt Rate > 60; Glucose 141 mg/dL (65-110); HDL Direct 56 mg/dL; Potassium 4.3 mmol/L (3.4-5.0); Sodium 137 mmol/L (137-145); Triglycerides 254 mg/dL (<150)
[2024-05-01 10:51] LABS: LDL Cholesterol Direct 57 mg/dL
[2024-05-01 11:06] LABS: Hemoglobin A1C 6.3 % (<5.7)
== END 2024-05-01 09:20 | disposition home or self-care (01) ==
PROVIDERS: PCP Family Medicine; Visit Provider Nurse Practitioner Family
DX: E78.5 Hyperlipidemia, unspecified (principal); E11.9 Type 2 diabetes mellitus without complications; I10 Essential (primary) hypertension
CPT/HCPCS: 36415; 80053; 80061; 83036; 85025

== ENCOUNTER 2024-12-10 09:27 | Outpatient (CLI) | payer MEDICARE, BC, OTHER, SELFPAY ==
--- OUTSIDE RECORDS SUMMARY | 2024-12-10 09:52 | XMS_ITS | Patient Health Record ---
Author Organization [facility] Address [address] [place] [address] Care Team Providers Care Confectionery Laboratory Manager Name Role Phone Chas Nath Unavailable [phone] Reason For Referral No Information Medications Medication SIG (Take, Route, Frequency, Duration) Notes Start Date End Date Status Mobic 15mg 1 by mouth DAILY 07/07/2011 A ctive Omeprazole 20mg 1 oral Select Frequency 05/14/2015 Active enalapril-diltiazem 5-180mg 1 oral Select Frequency 05/14/2015 Active atorvastatin 80mg 1 oral Select Frequency 05/14/19 16 Active Triamterene W/Hctz 37.5-25mg 1 oral Select Frequency 05/14/2015 Acti ve metformin 500mg 1 oral Select Frequency 05/14/2015 Active amlodipine 10mg 1 oral Select Frequency 05/14/2015 Active Medrol (Wil) 4mg 1 by mouth as directed 04/10/2016 Active Problems Problem Type SNOMED Code ICD Code Onset Dates Problem Status W/U Status Risk Notes Problem Low back pain (605769082) Low back pain (M545) 12/01/19 16 Active confirmed [id number] Problem Chronic pain syndrome (548434576) Chronic pain syndrome (G894) 12/01/19 16 Active confirmed [id number] Problem Spasm of back muscles (146014420) Muscle spasm of back (D06693) 12/01/19 16 Active confirmed [id number]- Problem Sacroiliitis, not elsewhere classified (M461) 12/01/19 16 Active confirmed [id number]- Problem Lumbosacral radiculopathy (0483737) Radiculopathy, lumbosacral region (M5417) 03/07/20 16 Active confirmed [id number] Plan Of Treatment No Information Insurance Providers Payer Name Payer Address Payer Phone Subscriber Number Group Number Insured Name Patient Relationship to Insured Coverage Start Date Coverage End Date [employer] [address] [place] [address] [id number] Alberto Smith Self - patient is the insured [employer] [place] - J11 [address] [place] [address] [id number] Alberto Smith Self - patient is the insured 3 [employer] [id number] [address] [place] [phone] [id number] Alberto Smith Self - patient is the insured Medical (General) History Medical History History ICD Code Conditions Diabetes Type II GERD Gastroesophageal Reflux Disease Indigestion Headaches Hypertension Surgical History Surgery Date(Month/Year) NO SURGICAL HX
--- OUTSIDE RECORDS SUMMARY | 2024-12-10 09:52 | XMS_ITS | Clinical Summary ---
Author Organization [facility] Address [address] [place] [address] Care Team Providers Care Lamination Inspector Name Role Phone Unavailable Primary Care Provider Unavailabl e Allergies No known active allergies Medications ampicillin (PRINCIPEN) 500 mg Capsule Take 1 Capsule (500 mg) by mouth 3 times daily. 21 Capsule 04/03/2022 11:10 AM [employer]ES [employer]ENT[employer]IVE [employer] 2 Active cephALEXin (KEFLEX) 500 mg capsule Take one capsule (500 mg) orally every 6 hours for 10 days 40 Capsule 01/17/2023 1:28 PM CDT 3 Active sacubitriL-vals iro (Entresto) 97-103 mg Tablet Take 1 Tablet by mouth 2 times daily. 60 Tablet 11 11/10/2024 3:45 PM CDT 4 Active empagliflozin (JARDIANCE) 10 mg tablet Take 1 Tablet (10 mg) by mouth daily. 30 Tablet 11 12/01/2024 2:24 PM CDT 4 Active spironolactone (ALDACTONE) 25 mg tablet Take 1 Tablet (25 mg) by mouth daily. 30 Tablet 11 10/21/2024 11:14 AM CDT 4 Active DULoxetine (CYMBALTA) 30 mg Capsule, Delayed Release(E.C.) Take 1 Capsule (30 mg) by mouth daily. 90 Capsule 1 10/09/2024 10:48 AM CDT 5 Active carvediloL (COREG) 12.5 mg tablet Take 1 Tablet (12.5 mg) by mouth 2 times daily. 180 Tablet 3 11/20/2024 7:03 PM CDT 5 Active carvediloL (COREG) 12.5 mg tablet Take 1 Tablet (12.5 mg) by mouth 2 times daily. 180 Tablet 09/02/2024 11:32 AM CDT 5 11/19/19 25 Discontinu ed(Reorder ) Encounters Date Type Department Care Team Description 10/02/2024 External Device Data [facility] Provider, Abstract 10/02/2024 External Device Data [facility] Provider, Abstract 10/01/2024 External Device Data [facility] Provider, Abstract from Last 3 Months Immunizations Immunization Administration Dates Next Due INFLUENZA VACCINE HIGH DOSE QUADRIVALENT 65 YR U P PF IM 04/18/2023 Social History Tobacco Use Types Packs/Day Years Used Date Smoking Tobacco: Never Assessed Sex and Gender Information Value Date Recorded Sex Assigned at Not on file Legal Sex Male 12:48 PM CDT Gender Identity Not on file Sexual Orientation Not on file Plan of Treatment Health Maintenance Due Date Last Done Comments DTAP/TDAP/TD VACCINES (1 - Tdap) 1967 PNEUMOCOCCAL VACCINE 50+ YEARS (1 of 1 - PCV) 03/07/19 98 ZOSTER VACCINE (1 of 2) 1998 RSV VACCINE (60+ or ) (1 - 1-dose 75+ series) 2023 INFLUENZA VACCINE (#1) 2024 04/18/2023 Insurance RX [facility] [employer] [facility]
[2024-12-10 10:26] LABS: Hematocrit 46.7 % (42.0-52.0); Hemoglobin 15.3 g/dL (14.0-18.0); Immature Granulocyte Percent A 0.7 % (0-0.5); Lymphocytes Absolute Auto 1.51 K/mm3 (0.9-3.2); Mean Corpuscular HGB Conc 32.8 g/dl (32-36); Mean Corpuscular Hemoglobin 30.8 pg (26-34); Mean Corpuscular Volume 94.0 fl (80-100); Nucleated Red Blood Cells Absolute Auto 0.000 K/mm3 (0.0-0.012); Nucleated Red Blood Cells Perc 0.0 % (0.0-0.2); Platelet Count Result 177 k/mm3 (150-375); Red Blood Count 4.97 M/mm3 (4.6-6.20); White Blood Count 4.4 K/mm3 (4.5-10.0)
[2024-12-10 10:55] LABS: Alanine Aminotransferase 38 U/L (6-50); Albumin Level 4.7 g/dL (3.5-5.1); Alkaline Phosphatase 53 U/L (38-126); Anion Gap 6 mmol/L (4-12); Aspartate Amino Transferase 38 U/L (17-59); Bilirubin,Total 0.8 mg/dL (0.2-1.3); Blood Urea Nitrogen 21 mg/dL (9-20); Calcium 10.4 mg/dL (8.4-10.2); Carbon Dioxide 29 mmol/L (22-30); Chloride 100 mmol/L (98-107); Estimated Glomerular Filt Rate > 60; Glucose 142 mg/dL (65-110); Potassium 4.7 mmol/L (3.4-5.0); Sodium 135 mmol/L (137-145); Total Protein 7.4 g/dL (6.3-8.2)
[2024-12-10 11:06] LABS: Parathyroid Intact 105.4 pg/mL (14.5-75.2)
[2024-12-10 11:29] LABS: Hemoglobin A1C 6.3 % (<5.7)
[2024-12-10 11:40] LABS: Thyroid Stimulating Hormone Reflex 1.660 uIU/mL (0.465-4.68)
[2024-12-10 11:42] LABS: MALB Creatinine Ratio < 14.2 mg/g (0-30)
== END 2024-12-10 09:28 | disposition home or self-care (01) ==
PROVIDERS: PCP Nurse Practitioner Family; Visit Provider Nurse Practitioner Family
DX: E83.52 Hypercalcemia (principal); I10 Essential (primary) hypertension; E11.9 Type 2 diabetes mellitus without complications; R79.89 Other specified abnormal findings of blood chemistry
CPT/HCPCS: 36415; 80053; 82043; 82306; 83036; 83970; 84443; 85025

== ENCOUNTER 2025-01-15 10:05 | Emergency (ER) | payer MEDICARE, BC, OTHER, SELFPAY ==
[2025-01-15 10:22] VITALS: BP 142/76; PULSE 58; RESP 20; TEMP 36.2; O2SAT 97
--- NOTE | 2025-01-15 11:07 | ED.SKABFB ---
HPI - Skin/Abscess/Foreign Bdy General Chief complaint: Skin/Abscess/Foreign Body Stated complaint: Cyst Time Seen by Provider: 01/15/25 11:20 Source: patient Mode of arrival: ambulatory Limitations: no limitations History of Present Illness HPI narrative: 74-year-old male presented for complaint of a cyst on the left upper back becoming painful and red for the past few days. Endorses he has had a cyst to the site for several years without any issues. Pain drainage, nausea vomiting, fevers or chills. Has applied Prid to the site. Related Data Home Medications ?Medication ?Instructions ?Recorded ?Confirmed ?Last Taken ?Type vitamin B complex 1 tablet PO DAILY 09/14/20 12/16/24 07/05/22 History metformin 500 mg tablet 500 mg PO DAILY 10/16/22 12/16/24 Unknown History atorvastatin 40 mg tablet 20 mg PO QHS 04/09/24 12/16/24 Unknown History coenzyme Q10 100 mg capsule 100 mg PO DAILY 04/09/24 12/16/24 Unknown History (CoQ-10) diclofenac sodium 1 % topical gel 2 g topical QID 04/09/24 12/16/24 Unknown History empagliflozin 10 mg tablet 10 mg PO DAILY 04/09/24 12/16/24 Unknown History (Jardiance) omega 8-exz-ffw-fish oil 60 mg-90 1 cap PO BID 04/09/24 12/16/24 Unknown History mg-500 mg capsule (Fish Oil) omeprazole 20 mg capsule,delayed 40 mg PO DAILY 04/09/24 12/16/24 Unknown History release sacubitril 97 mg-valsartan 103 mg 1 tablet PO BID 04/09/24 12/16/24 Unknown History tablet sildenafil 100 mg tablet 100 mg PO DAILY PRN 04/09/24 12/16/24 Unknown History spironolactone 25 mg tablet 12.5 mg PO DAILY 04/09/24 12/16/24 Unknown History turmeric 400 mg capsule 400 mg PO BID 04/09/24 12/16/24 Unknown History carvedilol 12.5 mg tablet 12.5 mg PO BID 10/07/24 12/16/24 Unknown History magnesium 200 mg tablet 500 mg PO BID 12/16/24 12/16/24 Unknown History Allergies Allergy/AdvReac Type Severity Reaction Status Date / Time tramadol AdvReac Mild Other Verified 01/15/25 10:09 Review of Systems Review of Systems: CONSTITUTIONAL: Denies body aches, fever, chills, or sweats. EYES: Denies visual changes, redness, or discharge. ENT: Denies rhinorrhea, congestion CARDIOVASCULAR: Denies chest pain, palpitations, or edema. RESPIRATORY: Denies cough or dyspnea. GASTROINTESTINAL: Denies abdominal pain, nausea, vomiting, or diarrhea. SKIN: reports cyst on back MUSCULOSKELETAL: Denies back pain, joint pain, or myalgia. NEUROLOGIC: Denies headache, numbness, tingling, or weakness. [facility] Past Medical History Medical History Increased PTH level CHF (congestive heart failure) Chronic low back pain History of colon polyps Dyslipidemia Type 2 diabetes mellitus without complications Essential (primary) hypertension GERD (gastroesophageal reflux disease) Surgical History Surgical History History of thumb surgery 2009 - Right thumb trigger finger release History of shoulder surgery (~2016) L: 2016, L:2017, R: 2014 repair of torn labrum History of right knee surgery (~09/2020) meniscus repair Social History Social History Smoking status: Former smoker Second hand tobacco smoke exposure: No Smoking end date: 05/14/72 Alcohol intake: never Drinks per week: 5 Alcohol use details: few Substance use: former Substance use type: does not use Lack of Transportation: No Lack of Food: Never True Current Housing: I Have Housing Concerned About Future Housing: No Difficulty Paying Gas/Electric Bills: No Difficulty Paying for Meds: No Currently Unemployed: No Education: Bachelor's Degree Difficulty w/ Childcare or Family Care: No Living arrangements: with family Additional living arrangements comments: Occupation/Education: retired Gender identity (if verbalized by the patient): Male Sexual Orientation (if Verbalized by the Patient): Straight or Heterosexual Spiritual care concerns: No Agree to blood products: Yes Comments At time of signature, I have reviewed and agree with nursing past medical, surgical, social and family history unless otherwise noted. Please see nursing chart for further information. There is no relevant family history pertinent to the presenting complaint Exam Narrative: GENERAL: Well-appearing HEAD: Normocephalic, atraumatic. EYES: conjunctivae clear, and EOMI. ENT: Mucous membranes moist. Oropharynx without edema, erythema or lesions. NECK: Supple. No lymphadenopathy; Left subclavian subcutaneous nodule approx 6cm diameter, nontender no erythema c/w lipoma CHEST: Clear to auscultation. HEART: Regular rate and rhythm. SKIN: Warm, dry. Left upper back with 2cm round raised subcutaneous nodule, tender, mild erythema, mild fluctuance at center. No active drainage or induration. NEURO: Alert and oriented x3. Course Course Emergency Course: Patient is aware of diagnosis, understands and agrees to treatment plan. Anticipatory guidance given. Patient agrees to follow-up as directed and is aware of reasons to seek care at the emergency department. Portions of this record may have been created with voice recognition software Level of Care: Express Care Visit Vital Signs Vital signs: Vital Signs Temperature 97.1 F L 01/15/25 10:22 Pulse Rate 58 L 01/15/25 10:22 Respiratory Rate 20 01/15/25 10:22 Blood Pressure 142/76 H 01/15/25 10:22 Pulse Oximetry 97 01/15/25 10:22 Oxygen Delivery Room Air 01/15/25 10:22 Temperature 97.1 F L 01/15/25 10:22 Pulse Rate 58 L 01/15/25 10:22 Respiratory Rate 20 01/15/25 10:22 Blood Pressure 142/76 H 01/15/25 10:22 Pulse Oximetry 97 01/15/25 10:22 Oxygen Delivery Room Air 01/15/25 10:22 Reviewed Procedures Abscess I/D back: Local Anesthetic: lidocaine 1% Amount of anesthesia used (mL): 1 Technique: incised with #11 blade Irrigation: Yes (30ml) I&D Results: Pus (thick cheese-like) Abcess I&D Additional Comments: The procedure and its alternatives were reviewed with patient. Risks were reviewed with patient including infection and damage to nearby structures. Patient provided verbal informed consent. The patient was positioned appropriately. Local anesthesia achieved. Single straight Incision made to center of most fluctuant area. Moderate amount of thick purulent discharge expelled with manual pressure. Wound irrigated and probed for loculations.Pt tolerated the procedure well, no complications. KONG and bandaid applied. MDM - Skin/Abscess/Foreign Bdy MDM Narrative Medical decision making narrative: Discussed physical exam findings c/w epidermal inclusion cyst. Tolerated I&D Rx abx. Advised supportive measures and signs/symptoms to go to the ER. Pt is appropriate for outpt treatment and f/u. Differential Diagnosis Differential diagnosis: Likely abscess of skin or subcutaneous tissue, viral exanthem, dermatophytosis, urticaria, herpes zoster, cellulitis, eczema, insect bites, impetigo and contact dermatitis Discharge Plan Discharge Clinical Impression: Epidermal inclusion cyst Patient Disposition: Home Condition: Stable Instructions: Antibiotic Form, Epidermal Inclusion Cysts (ED) Additional Instructions: You had an abscess drained today. You may shower and Cleanse with warm soapy water Keep your wound covered while draining Warm compresses at least 4 times a day to the site to help expel any additional drainage. Take antibiotic as directed Tylenol and ibuprofen every 8 hours for pain as needed Follow up with your primary care physician in 2-3 days for a wound check. Go to the Emergency Department immediately if you develop any of the following symptoms: Fevers, Increased redness, pain, or swelling around where your abscess was, generalized weakness or vomiting or any other concerns Patient Language: Divehi Prescriptions: New cephalexin 500 mg capsule 500 mg PO Q6H 5 Days Qty: 20 0RF No Action omeprazole 20 mg capsule,delayed release(DR/EC) 40 mg PO DAILY carvedilol 12.5 mg tablet 12.5 mg PO BID metformin 500 mg tablet 500 mg PO DAILY atorvastatin 40 mg tablet 20 mg PO QHS diclofenac sodium 1 % gel 2 g topical QID Rx Instructions: apply to single elbow, wrist or hand; for hand includes palm/fingers/back of hand sacubitril-valsartan 97-103 mg tablet 1 tablet PO BID sildenafil 100 mg tablet 100 mg PO DAILY PRN Rx Instructions: administer 30 minutes to 4 hours before activity Jardiance 10 mg tablet 10 mg PO DAILY spironolactone 25 mg tablet 12.5 mg PO DAILY coenzyme Q10 [CoQ-10] 100 mg capsule 100 mg PO DAILY magnesium 200 mg tablet 500 mg PO BID vitamin B complex Tablet 1 tablet PO DAILY omega 0-wlt-lea-fish oil [Fish Oil] 60-90-500 mg capsule 1 cap PO BID turmeric 400 mg capsule 400 mg PO BID duloxetine 30 mg capsule,delayed release(DR/EC) 30 mg PO DAILY Qty: 90 1RF Follow-up/Referrals: Geoffrey Owens MD [Primary Care Provider, Family Practice] Time of Disposition: 11:52
[2025-01-15] MEDS: LIDOCAINE 1% LOCAL INJ 2 ML AMPUL INFILTRATE (11:31)
== END 2025-01-15 12:02 | disposition home or self-care (01) ==
PROVIDERS: Emergency Provider Nurse Practitioner Family; PCP Family Medicine
DX: L72.0 Epidermal cyst (principal); Z87.891 Personal history of nicotine dependence; I11.0 Hypertensive heart disease with heart failure; I50.9 Heart failure, unspecified; E11.9 Type 2 diabetes mellitus without complications; Z79.84 Long term (current) use of oral hypoglycemic drugs; E78.5 Hyperlipidemia, unspecified; K21.9 Gastro-esophageal reflux disease without esophagitis
CPT/HCPCS: 10060; 99213; G0463; J2003